=== PATIENT | male | born 1980 | race Caucasian/White ===

== ENCOUNTER 2018-01-25 13:59 | Inpatient (IN) | payer OTHER ==
[~2018-01-25] VITALS: Ht 180.3 cm; Wt 90.0 kg
[2018-01-25] MEDS ORDERED: ZESTRIL40 MG PO (14:33)
[2018-01-25 15:09] LABS: APPEARANCE CLEAR (CLEAR); BILIRUBIN NEGATIVE (NEGATIVE); COLOR YELLOW (YELLOW); GLUCOSE NEGATIVE (NEGATIVE); KETONE NEGATIVE (NEGATIVE); NITRITE NEGATIVE (NEGATIVE); PROTEIN NEGATIVE (NEGATIVE); UROBILINOGEN NORMAL (NORMAL)
[2018-01-25 15:20] LABS: BASOPHILS 0.1 % (0-2); EOSINOPHILS 0.3 % (0-7); HEMATOCRIT 45.5 % (42.0-54.0); HEMOGLOBIN 15.7 g/dL (13.5-17.5); IMMATURE GRANULOCYTES 0.4 % (0-5); LYMPHOCYTES 7.8 % (15-50); MCH 31.4 pg (26.0-34.0); MCHC 34.5 g/dL (31.0-37.0); MEAN PLATELET VOLUME 10.6 fL (7.4-10.4); MONOCYTES 13.1 % (2-11); NEUTROPHILS 78.3 % (40-80); PLATELET COUNT 289 10x3/uL (130-400); RDW 12.6 % (11.5-14.5); WBC 19.3 10x3/uL (4.8-10.8)
[2018-01-25 15:49] LABS: ALBUMIN 3.6 g/dL (3.4-5.0); ALKALINE PHOSPHATASE 83 U/L (46-116); ALT (SGPT) 22 U/L (10-68); BILIRUBIN - TOTAL 0.52 mg/dL (0.2-1.3); CALC OSMOLALITY 263 mosm/kg (275-300); CALCIUM 8.6 mg/dL (8.5-10.1); CARBON DIOXIDE 28.3 mmol/L (21.0-32.0); CHLORIDE - SERUM 97 mmol/L (98-107); CREATININE - SERUM 1.1 mg/dL (0.6-1.3); GLUCOSE 104 mg/dL (74-106); LIPASE 102 U/L (73-393); PROTEIN - SERUM 7.5 g/dL (6.4-8.2); SODIUM 133 mmol/L (136-145); UREA NITROGEN 8 mg/dL (7-18); eGFR NON AFRICAN AMERICAN 80 mL/min (90-120)
[2018-01-25 21:10] VITALS: BP 109/69
[2018-01-25 22:07] VITALS: BP 109/69; BMI 27.6
[2018-01-26 05:07] VITALS: BP 107/56
[2018-01-26 07:57] VITALS: BP 91/45
[2018-01-26 13:53] VITALS: Ht 180.3 cm; Wt 90.0 kg
[2018-01-26 14:21] VITALS: BP 91/46
[2018-01-26 15:38] LABS: HEMATOCRIT 37.6 % (42.0-54.0); HEMOGLOBIN 12.6 g/dL (13.5-17.5); MCHC 33.5 g/dL (31.0-37.0); MCV 92.4 fL (80.0-100.0); MEAN PLATELET VOLUME 10.9 fL (7.4-10.4); PLATELET COUNT 256 10x3/uL (130-400); RBC 4.07 10x6/uL (4.20-6.10); RDW 12.7 % (11.5-14.5)
[2018-01-26 15:39] LABS: WBC 11.2 10x3/uL (4.8-10.8)
[2018-01-26 15:50] LABS: CALC OSMOLALITY 271 mosm/kg (275-300); CALCIUM 7.7 mg/dL (8.5-10.1); CARBON DIOXIDE 30.2 mmol/L (21.0-32.0); CHLORIDE - SERUM 105 mmol/L (98-107); CREATININE - SERUM 1.1 mg/dL (0.6-1.3); GLUCOSE 101 mg/dL (74-106); POTASSIUM - SERUM 4.3 mmol/L (3.5-5.1); SODIUM 137 mmol/L (136-145); UREA NITROGEN 7 mg/dL (7-18); eGFR NON AFRICAN AMERICAN 80 mL/min (90-120)
[2018-01-26 16:00] LABS: BASOPHILS 1 % (0-2); LYMPHOCYTES 17 % (15-50); MONOCYTES 2 % (2-11); NEUTROPHILS 79 % (40-80); PLATELET ESTIMATE NORMAL
[2018-01-26 22:12] VITALS: BP 100/62
[2018-01-27 04:27] VITALS: BP 92/54
[2018-01-27 09:19] VITALS: BP 104/74
[2018-01-27 16:31] VITALS: BP 112/79
[2018-01-27 21:44] VITALS: BP 132/91
[2018-01-28 05:02] VITALS: BP 106/58
[2018-01-28 05:26] LABS: BASOPHILS 0.6 % (0-2); EOSINOPHILS 4.8 % (0-7); HEMATOCRIT 38.3 % (42.0-54.0); HEMOGLOBIN 12.8 g/dL (13.5-17.5); IMMATURE GRANULOCYTES 0.1 % (0-5); LYMPHOCYTES 41.9 % (15-50); MCH 30.5 pg (26.0-34.0); MCHC 33.4 g/dL (31.0-37.0); MCV 91.4 fL (80.0-100.0); MEAN PLATELET VOLUME 10.3 fL (7.4-10.4); MONOCYTES 10.4 % (2-11); NEUTROPHILS 42.2 % (40-80); PLATELET COUNT 297 10x3/uL (130-400); RBC 4.19 10x6/uL (4.20-6.10); RDW 12.9 % (11.5-14.5)
[2018-01-28 05:39] LABS: CALC OSMOLALITY 282 mosm/kg (275-300); CALCIUM 8.4 mg/dL (8.5-10.1); CARBON DIOXIDE 32.3 mmol/L (21.0-32.0); CHLORIDE - SERUM 107 mmol/L (98-107); CREATININE - SERUM 1.1 mg/dL (0.6-1.3); GLUCOSE 90 mg/dL (74-106); POTASSIUM - SERUM 4.2 mmol/L (3.5-5.1); SODIUM 143 mmol/L (136-145); UREA NITROGEN 8 mg/dL (7-18); eGFR NON AFRICAN AMERICAN 80 mL/min (90-120)
[2018-01-28 08:14] VITALS: BP 129/78
[2018-01-28 17:01] VITALS: BP 126/68
[2018-01-28 22:14] VITALS: BP 128/90
[2018-01-29 05:49] VITALS: BP 92/56
[2018-01-29 06:01] LABS: BASOPHILS 0.4 % (0-2); EOSINOPHILS 4.7 % (0-7); HEMATOCRIT 39.4 % (42.0-54.0); IMMATURE GRANULOCYTES 0.3 % (0-5); LYMPHOCYTES 37.5 % (15-50); MCH 30.4 pg (26.0-34.0); MCV 92.3 fL (80.0-100.0); MEAN PLATELET VOLUME 10.6 fL (7.4-10.4); MONOCYTES 8.2 % (2-11); NEUTROPHILS 48.9 % (40-80); PLATELET COUNT 350 10x3/uL (130-400); RBC 4.27 10x6/uL (4.20-6.10); RDW 12.9 % (11.5-14.5); WBC 7.7 10x3/uL (4.8-10.8)
[2018-01-29 06:12] LABS: CALC OSMOLALITY 284 mosm/kg (275-300); CALCIUM 8.4 mg/dL (8.5-10.1); CARBON DIOXIDE 30.2 mmol/L (21.0-32.0); CHLORIDE - SERUM 108 mmol/L (98-107); GLUCOSE 96 mg/dL (74-106); POTASSIUM - SERUM 4.7 mmol/L (3.5-5.1); SODIUM 144 mmol/L (136-145); UREA NITROGEN 6 mg/dL (7-18); eGFR NON AFRICAN AMERICAN 90 mL/min (90-120)
[2018-01-29 08:24] VITALS: BP 132/71
[2018-01-29 12:42] VITALS: BP 116/68
[2018-01-29] MEDS ORDERED: PROTONIX40 MG PO (14:51)
[2018-01-29] MEDS ORDERED: FLORAJEN3 CAPS460 MG PO (14:51)
[2018-01-29] MEDS ORDERED: LEVAQUIN750 MG PO (14:52)
[2018-01-29] MEDS ORDERED: FEXOFENADINE HC60 MG PO (14:52)
[2018-01-29] MEDS ORDERED: NICODERM C1 PATCH .1 TRANSDERM (14:52)
[2018-01-29] MEDS ORDERED: FLAGYL500 MG PO (14:52)
[2018-01-29 16:02] VITALS: BP 101/75
== END 2018-01-29 16:51 | disposition home or self-care (01) | DRG 391 ==
LOC: D.ER 13:59 → D.MS 17:13 → D.EDHOLD 17:13 → D.MS 18:52
PROVIDERS: Family Medicine; Internal Medicine Nephrology
DX: K57.20 Diverticulitis of large intestine with perforation and abscess without bleeding (principal); J18.9 Pneumonia, unspecified organism; F17.213 Nicotine dependence, cigarettes, with withdrawal; A09 Infectious gastroenteritis and colitis, unspecified; I10 Essential (primary) hypertension; E86.0 Dehydration